=== PATIENT | female | born 1995 | race Caucasian/White ===

== ENCOUNTER 2020-06-16 20:28 | Day surgery (SDC) | payer MEDICAID ==
[~2020-06-16] VITALS: Ht 157.5 cm; Wt 61.2 kg
--- NOTE | 2020-06-16 20:38 | NUR ---
Pale at triage, VSS, urine cup given. EKG for sob sx per protocol. Pt is .
[2020-06-16] MEDS ORDERED: ONDANSETRON ODT 4 MG ONE (21:28)
[2020-06-16] MEDS ORDERED: ACETAMINOPHEN 500 MG TABLET ONE (21:28)
[2020-06-16] MEDS ORDERED: ACETAMINOPHEN 500 MG TABLET PO ONE (21:30)
[2020-06-16] MEDS ORDERED: ONDANSETRON ODT 4 MG PO ONE (21:30)
[2020-06-16 21:38] LABS: BASOPHILS % (AUTO) 1 % (0-1); EOSINOPHILS % (AUTO) 1 % (1-7); LYMPHOCYTES % (AUTO) 15 % (22-44); MEAN CORPUSCULAR HEMOGLOBIN 28.5 pg (27.0-34.8); MEAN CORPUSCULAR HGB CONC 33.4 g/dL (32.4-35.8); MEAN PLATELET VOLUME 6.8 fL (7.4-10.4); MONOCYTES % (AUTO) 6 % (2-9); NEUTROPHILS % (AUTO) 77 % (42-75); PLATELET COUNT 278 x10^3/uL (130-400); RED BLOOD COUNT 4.67 x10^6/uL (3.82-5.3); RED CELL DISTRIBUTION WIDTH 13.6 % (9.6-15.2)
--- NOTE | 2020-06-16 21:38 | NUR ---
US AT BEDSIDE, PATIENT REQUESTING PAIN MEDICATION
[2020-06-16 21:46] LABS: ALANINE AMINOTRANSFERASE 83 U/L (12-78); ALBUMIN 4.1 g/dL (3.4-5.0); ANION GAP 6 mmol/L (5-15); CALCIUM 9.1 mg/dL (8.5-10.1); CHLORIDE 108 mmol/L (98-107); CREATININE 0.81 mg/dL (0.55-1.02)
[2020-06-16 21:49] LABS: ALKALINE PHOSPHATASE 118 U/L (45-117); BILIRUBIN,TOTAL 0.4 mg/dL (0.2-1.0); TOTAL PROTEIN 7.8 g/dL (6.4-8.2)
[2020-06-16 21:53] LABS: MD NO
--- NOTE | 2020-06-16 22:06 | NUR ---
BASIN PROVIDED TO PATIENT TO EXPRESS BREAST MILK
[2020-06-16] MEDS ORDERED: CEFTRIAXONE PMX 1GM/50ML 50 ML ONE (22:27)
[2020-06-16] MEDS ORDERED: MORPHINE SULFATE 4 MG/ML, 1ML ONE (22:28)
[2020-06-16] MEDS ORDERED: MORPHINE SULFATE 4 MG/ML, 1ML IVPush PRN ×2 (22:30→23:00)
[2020-06-16] MEDS ORDERED: CEFTRIAXONE PMX 1GM/50ML 50 ML IV ONE (22:30)
[2020-06-16] MEDS ORDERED: ONDANSETRON 2MG/ML, 2ML IVPush PRN (23:00)
[2020-06-16] MEDS ORDERED: FLUCONAZOLE 100 MG TABLET PO ONE (23:00)
[2020-06-16] MEDS ORDERED: SODIUM CHLORIDE 0.9% 1,000 ML IV ONE (23:00)
--- NOTE | 2020-06-17 00:20 | NUR ---
PATIENT UP TO RESTROOM WITH MINIMAL ASSISTANCE
--- NOTE | 2020-06-17 01:10 | NUR ---
PATIENT RESTING IN BED WITH EYES CLOSED, VSS, NAD, CALLBELL WITHIN REACH WILL CONTINUE TO MONITOR
--- NOTE | 2020-06-17 02:04 | NUR ---
PATIENT RESTING ON STRETCHER WITH EYES CLOSED, NAD, VSS, CALLBELL WITHIN REACH. WILL CONTINUE TO MONITOR.
--- NOTE | 2020-06-17 03:04 | NUR ---
REPORT TO COREEN CHANDLER
--- NOTE | 2020-06-17 03:19 | NUR ---
Report received from RAMESH Gonzáles. This RN to assume care. Obtained breast pump for patient and placed in room with supplies.
--- NOTE | 2020-06-17 04:40 | NUR ---
Patient sleeping in hospital bed. No complaints/needs at this time. Family at bedside.
--- NOTE | 2020-06-17 07:03 | NUR ---
Report to RAMESH Casper. Patient care transferred.
--- NOTE | 2020-06-17 07:05 | NUR ---
Took report from Monica Joe RN, assume care at this time. Pt calm sleeping in bed rr even unlabored rr 14/min.
--- NOTE | 2020-06-17 09:26 | NUR ---
PT STILL SLEEPING RR EVEN AND UNLABORED
--- NOTE | 2020-06-17 12:32 | NUR ---
PT WILL BE GOING TO OR LATER [facility] 5-6 PM
--- NOTE | 2020-06-17 14:02 | NUR ---
BREAST MILK PUT IN FRIG
[2020-06-17] MEDS ORDERED: BUPIVACAINE/PF-EPI 0.5% 1:200K ONE (18:30)
[2020-06-17 18:37] VITALS: BP 112/74
[2020-06-17] MEDS ORDERED: MIDAZOLAM 1 MG/ML, 2ML ONE (18:49)
[2020-06-17] MEDS ORDERED: FENTANYL PF 250 MCG/5ML ONE (18:49)
[2020-06-17] MEDS ORDERED: PROPOFOL 100 ML ONE (19:03)
[2020-06-17] MEDS ORDERED: PROMETHAZINE 25 MG/ML, 1ML IV PRN (19:30)
[2020-06-17] MEDS ORDERED: hydrALAzine 20 MG/ML, 1ML IV PRN (19:30)
[2020-06-17] MEDS ORDERED: ACETAMINOPHEN 325 MG TABLET PO PRN (19:30)
[2020-06-17] MEDS ORDERED: LABETALOL 5MG/ML, 20ML IV PRN (19:30)
[2020-06-17] MEDS ORDERED: FENTANYL PF 100 MCG/2ML IV PRN (19:30)
[2020-06-17] MEDS ORDERED: DIAZEPAM 5 MG/ML, 2ML IVPush PRN (19:30)
[2020-06-17] MEDS ORDERED: MEPERIDINE/PF 25MG/0.5ML IVPush PRN (19:30)
[2020-06-17] MEDS ORDERED: HYDROmorphone 2 MG/ML, 1ML IVPush PRN (19:30)
[2020-06-17] MEDS ORDERED: KETOROLAC 30 MG/1 ML IV PRN (19:30)
[2020-06-17] MEDS ORDERED: ALBUTEROL SULFATE 2.5 MG/3 ML NPPB PRN (19:30)
[2020-06-17] MEDS ORDERED: ROCURONIUM 10MG/ML,5ML ONE (19:43)
[2020-06-17] MEDS ORDERED: PROPOFOL 10 MG/ML, 20ML ONE (19:43)
[2020-06-17] MEDS ORDERED: SUCCINYLCHOLINE 20 MG/ML, 10ML ONE (19:43)
[2020-06-17] MEDS ORDERED: CEFAZOLIN 1,000 MG ONE (19:43)
[2020-06-17] MEDS ORDERED: GLYCOPYRROLATE 0.2MG/1ML, 5ML ONE (19:43)
[2020-06-17] MEDS ORDERED: NEOSTIGMINE 1 MG/ML, 10ML ONE (19:43)
[2020-06-17] MEDS ORDERED: ONDANSETRON 2MG/ML, 2ML ONE (19:43)
[2020-06-17] MEDS ORDERED: SUGAMMADEX 200 MG/2 ML IVPush ONE (19:44)
[2020-06-17] MEDS ORDERED: OXYcodone 5 MG/5 ML ORAL.SOL UDC ONE ×2 (20:16→20:59)
[2020-06-17] MEDS ORDERED: ACETAMINOPHEN 650 MG/20.3 ML UDC ONE (20:16)
[2020-06-17] MEDS ORDERED: FENTANYL PF 100 MCG/2ML ONE (20:16)
[2020-06-17] MEDS: OXYcodone 5 MG/5 ML ORAL.SOL UDC PO PRN ×2 (20:22→20:51)
== END 2020-06-20 08:09 | disposition home or self-care (01) ==
LOC: ED 21:26 → UNDOADMIN 06-17 → EDIP 06-17 → ED 06-17 19:22 → OUT 06-17 20:51
PROVIDERS: ATTEND Surgery
DX: K81.1 Chronic cholecystitis (principal); R10.13 Epigastric pain; R10.11 Right upper quadrant pain; Z20.828 Contact with and (suspected) exposure to other viral communicable diseases; Z98.890 Other specified postprocedural states
CPT/HCPCS: 36415; 47562; 71045; 76700; 80053; 83690; 84703; 85025; 87635; 88304; 93005; 99285; J0690; J0696; J2250; J2270; J2405; J2704; J3010; J7030; Q0162; J2710; J0330